=== PATIENT | female | born 1955 | race Hispanic/Latino ===

== ENCOUNTER → 2018-10-04 | Outpatient (CLI) | payer MEDICARE ==
[~2018-10-04] MED LIST: AMOX-426 PO; BUME0.5T11 PO; CHLO500T3 PO; CLON1TAB12 PO; ESOM40CA PO; FOLI1TAB15 PO; HYD25 PO; IOHEXOL-350 50ML VIAL IV ONE; LORA-868 PO; MULT-685 PO; PRED2.5T PO; PRED5TAB PO; TEMO15C TP; TRAM50TA4 PO
== END | disposition home or self-care (01) ==
LOC: RAH 08:48
PROVIDERS: ATTEND Internal Medicine
DX: R05 Cough (principal); R76.11 Nonspecific reaction to tuberculin skin test without active tuberculosis; K44.9 Diaphragmatic hernia without obstruction or gangrene; M05.89 Other rheumatoid arthritis with rheumatoid factor of multiple sites; Z79.899 Other long term (current) drug therapy
CPT/HCPCS: 71270; Q9967

== ENCOUNTER → 2018-10-26 | Outpatient (CLI) | payer MEDICARE ==
[~2018-10-26] MED LIST changes: -IOHEXOL-350 50ML VIAL IV ONE
== END | disposition home or self-care (01) ==
LOC: RAH 12:37
PROVIDERS: ATTEND Internal Medicine
DX: E04.2 Nontoxic multinodular goiter (principal)
CPT/HCPCS: 76536

== ENCOUNTER → 2022-03-31 | Outpatient (CLI) | payer MEDICARE ==
[~2022-03-31] MED LIST changes: -BUME0.5T11 PO; +BUME0.5T4 PO
== END | disposition home or self-care (01) ==
LOC: RAH 13:34
PROVIDERS: ATTEND Family Medicine
DX: N63.12 Unspecified lump in the right breast, upper inner quadrant (principal); R92.8 Other abnormal and inconclusive findings on diagnostic imaging of breast
CPT/HCPCS: 76641; 77065

== ENCOUNTER → 2023-12-20 | Outpatient (CLI) | payer MEDICARE | END | disposition home or self-care (01) | LOC: RAH 08:44 | PROVIDERS: ATTEND Internal Medicine Gastroenterology | DX: K44.9 Diaphragmatic hernia without obstruction or gangrene (principal); R12 Heartburn; R93.3 Abnormal findings on diagnostic imaging of other parts of digestive tract | CPT/HCPCS: 74240 ==

== ENCOUNTER 2024-05-04 22:16 | Emergency (ER) | payer MEDICARE ==
[~2024-05-04] VITALS: Ht 157.5 cm; Wt 90.7 kg
[2024-05-04] MEDS: HYDROcodone/acetaMINOPHEN 10/325 MG TAB PO ONE (23:10)
[2024-05-04] MEDS: teTANUS/diphthERIA TOXOID [ADULT] 0.5 ML VIAL IM ONE (23:12)
[2024-05-04] MEDS: LIDOCAINE HCL 1% 20 ML VIAL INJ SCH (23:12)
[2024-05-04] MEDS: ceFAZolin SODIUM 1 GM VIAL IM SCH (23:24)
[2024-05-05] MEDS ORDERED: CEPH500B PO (00:22)
[2024-05-05] MEDS ORDERED: KETO10TA2 PO (00:22)
--- NOTE | 2024-05-05 00:25 | ERN ---
General Chief Complaint: Mechanical Fall Stated Complaint: LACERATION TO R KNEE S/P FALL Time Seen by MD: 22:19 Time Seen by Midlevel: 22:19 Source: patient History of Present Illness Initial Comments Patient is a morbidly obese 68-year-old female presenting to the emergency department following a mechanical ground level fall. Patient states she was getting out of bed when she accidentally tripped and landed on her right knee. There is a large laceration just above the right knee. Patient states he landed on carpet in his unsure how she cut her leg. As soon as this happened she was transported to the ER for further evaluation. Patient denies being up-to-date with her tetanus vaccination Allergies: Coded Allergies: No Known Drug Allergies (Verified Allergy, Unknown, 08/02/14) Home Meds Active Scripts Cephalexin Monohydrate (Keflex) 500 Mg Cap, 500 MG PO TID for 7 Days, #21 CAP Prov:CHEPE FUENTES 05/05/24 Ketorolac Tromethamine (Ketorolac Tromethamine) 10 Mg Tablet, 10 MG PO BID for 5 Days, #10 TAB Prov:CHEPE FUENTES 05/05/24 Amoxicillin/Potassium Clav (Augmentin 500-125 Tablet) 1 Each Tablet, 1 EACH PO BID, #20 TAB 0 Refills Prov:CHACE JOSÉ MD 09/13/14 Reported Medications Tramadol Hcl (Tramadol HCl) 50 Mg Tablet, 50 MG PO QID, TAB 09/04/14 Tramadol Hcl (Tramadol HCl) 50 Mg Tablet, 50 MG PO TID PRN for PAIN, TAB 08/02/14 Bumetanide (Bumetanide) 0.5 Mg Tablet, 0.5 MG PO QODAY, TAB 08/02/14 Clobetasol Propionate (Temovate 0.05% Cream) 1 Appl/Gm Crm, 1 APPL TP BID, APPL 08/02/14 Hydroxyzine HCl (Atarax) 25 Mg Tab, 10 MG PO [id number] PRN for ITCHING, TAB 08/02/14 Loratadine/Pseudoephedrine (Claritin-D 24 Hour Tablet) 1 Each Tab.er.24h, 1 EACH PO DAILY, TAB 08/02/14 Clonazepam (Clonazepam) 1 Mg Tablet, 1 MG PO HS, TAB 3/6/15 Multivitamin with Minerals (Multiple Vitamin) 1 Each Tablet, 1 EACH PO DAILY, TAB 08/02/14 Folic Acid (Folic Acid) 1 Mg Tablet, 1 MG PO DAILY, TAB 08/02/14 Chlorzoxazone (Chlorzoxazone) 500 Mg Tablet, 500 MG PO [id number] PRN for PAIN, TAB 08/02/14 Prednisone (Prednisone) 2.5 Mg Tablet, 2.5 MG PO DAILYDINNER, TAB 08/02/14 Prednisone (Prednisone) 5 Mg Tablet, 5 MG PO DAILYBKFST, TAB 08/02/14 Esomeprazole Magnesium (Nexium) 40 Mg Capsule.dr, 40 MG PO DAILY, CAP 08/02/14 Past Medical History Past Medical History: Arthritis Past Surgical History: Hysterectomy, Other Surgical History Other: R TOTAL KNEE, HIATAL HERNIA ROS Dictation CONSTITUTIONAL: Negative except for HPI HEAD/FACE: Negative except for HPI EENT: Negative except for HPI RESPIRATORY: Negative except for HPI GASTROINTESTINAL/ABDOMINAL: Negative except for HPI GENITOURINARY: Negative except for HPI MUSCULOSKELETAL: Negative except for HPI INTEGUMENTARY: Negative except for HPI NEUROLOGICAL/PSYCH: Negative except for HPI HEMATOLOGIC/LYMPHATIC: Negative except for HPI All Systems Negative, Except as noted above. 13 point review of systems assessed and all negative except for above. Physical Exam Physical Exam Dictation Vital Signs reviewed General Appearance: Alert, oriented x 3, no acute distress, well developed, nourished. Head and Face: non-traumatic. Eyes: PERRL, pink conjunctivas, eyelid no trauma, anterior chamber with arcus senilis. Ears: Pinnas intact and no signs of trauma or erythema ear canals clear and no discharge TM no erythema Nose: No discharge, no bleeding. Oropharynx: Mouth normal, tongue pink, pharynx clear,no erythema, tonsils no exudates, no abscesses noted, mucous membrane moist Neck: Supple, non-tender, no thyromegaly, no masses, no JVD, no bruits Breast:Deferred Chest:No tenderness, no crepitus, no paradoxical movement, no retractions Lungs:Clear, well-ventilated, symmetric, no rales, no wheezing, no rhonchi, no stridor, good breath sounds bilaterally Heart: Regular rate, regular rhythm, no murmur, no gallops Vascular: no peripheral edema, Abdomen: Soft, positive bowel sounds, nondistended, no guarding, nontender, no rebound, no masses no hepatomegaly, no splenomegaly, no Medina's sign, no hernias. Rectal: Deferred Genital: Deferred Neurological: Normal speech, motor function intact, sensory function intact Musculoskeletal: Neck nontender, full range of motion, back nontender, full range of motion, Extremities: nontender, full range of motion Skin: 10 cm linear laceration to the right leg just above the knee joint, there is full range motion of the right knee, there is some mild surrounding swelling, there is minimal active bleeding, no foreign bodies identified Lymphatic: Deferred MDM MDM: Patient is a morbidly obese 68-year-old female presenting to the emergency department following a mechanical ground level fall. Patient states she was getting out of bed when she accidentally tripped and landed on her right knee. There is a large laceration just above the right knee. Patient states he landed on carpet in his unsure how she cut her leg. As soon as this happened she was transported to the ER for further evaluation. Patient denies being up-to-date with her tetanus vaccination. On physical examination patient is in no acute distress. There is a 10 cm linear laceration to the right leg just above the knee joint, there is full range motion of the right knee, there is some mild surrounding swelling, there is minimal active bleeding, no foreign bodies identified. An x-ray of the right knee was obtained which does not show any acute fracture or radiopaque foreign body. The laceration was thoroughly cleansed with normal saline, wound cleanser, and iodine. The laceration was successfully repaired with 2-0 simple interrupted sutures. The patient was given a tetanus vaccination in the emergency department and she was also given1 g of Ancef to prevent an infection. She was discharged home with oral antibiotics. Patient was advised to follow up with primary care doctor in 7-10 days for suture removal. If she was to develop any signs of infection she was advised to report to the ER for further evaluation. Differential diagnosis: Knee fracture, laceration, abrasion, contusion, dislocation There are no social concerns with this patient. Prescription drug management Prescriptions will include: Keflex and Toradol Medical management and examination interpretation discussions were had by me with other qualified healthcare professionals as indicated for the patient's care. ED Course Orders Procedure Category Date Status Time Hydrocodone/Apap PHA 05/04/24 Complete 10/325 Tab ([place] 10) 23:00 Knee 3vws Rt RAD 05/04/24 Resulted 22:31 Tibia/Fibula 2vws Rt RAD 05/04/24 Resulted 22:31 Lidocaine Hcl 1% 20ml PHA 05/04/24 Complete Vial (Lidocaine Hc 23:00 Laceration Tray Set CPOE 05/04/24 Transmitted Up (Er) 22:31 Tetanus,Diphtheria PHA 05/04/24 Complete Tox [Adult] (Diphther 23:00 Cefazolin Sodium 1 Gm PHA 05/04/24 Complete Vial (Ancef 1 Gm V 23:30 Morphine 4mg Syg PHA 05/05/24 Complete (Morphine 4mg Syg) 00:30 Current Medications Medications (Trade) Dose Ordered Sig/Leonarda Route PRN Reason Start Time Stop Time Status Last Admin Dose Admin Acetaminophen/ Hydrocodone Bitart (NORco 10) 1 tab ONCE ONCE PO 05/04/24 23:00 05/04/24 23:01 DC 05/04/24 23:10 Cefazolin Sodium (ANCEF 1 gm vial) 1 gm ONCE IM 05/04/24 23:30 05/05/24 00:42 DC 05/04/24 23:24 Lidocaine HCl (Lidocaine HCl 1% 20ml Vial) ONCE INJ 05/04/24 23:00 05/05/24 00:42 DC 05/04/24 23:12 Morphine Sulfate (morPHINE 4MG SYG) 3 mg ONCE PRN IM SEVERE PAIN (7-10) 05/05/24 00:30 05/05/24 00:42 DC 05/05/24 00:36 Tetanus/ Diphtheria Toxoids Adsorbed (DiphthERIA-teTANUS TOXOID [ADULT]/ DECAVAC) 0.5 ml ONCE ONCE IM 05/04/24 23:00 05/04/24 23:01 DC 05/04/24 23:12 Vital Signs Date Time Temp Pulse Resp B/P (MAP) Pulse Ox O2 Delivery O2 Flow Rate FiO2 05/05/24 00:34 97.3 100 17 136/64 98 Room Air* 0 21 05/04/24 22:18 97.3 107 17 130/64 98 Room Air 0 05/04/24 22:17 97.3 107 17 130/64 98 Room Air* [address] [id number] IMAGING REPORT Signed PATIENT: JEYSON TYLER MR#: [id number] : 1955 SEX: F AGE: 68 LOCATION: ED ORDER 34 STATUS: [facility] ER REPORT#: [id number] SERVICE 30 REASON: fall/laceration ORDERING PHYSICIAN: CHEPE FUENTES PROCEDURE: KNEE 3V RT - KNEE 3VWS RT RIGHT KNEE RADIOGRAPHS - 3 VIEWS INDICATION: Pain COMPARISON: None FINDINGS: AP, lateral, and oblique views. Moderate to severe anterolateral right knee soft tissue swelling beginning at the level of the patella and extending distally to along the proximal to mid right leg. No acute fracture or dislocation identified. No significant joint effusion is present. Normal right knee arthroplasty hardware. Overlying soft tissues appear normal. IMPRESSION: No evidence for fracture or hardware complication. DICTATED BY: MANPREET MUÑOZ MD DATE: 05/05/24829 ELECTRONICALLY SIGNED BY: MANPREET MUÑOZ MD DATE: 05/05/[address] [address] IMAGING REPORT Signed PATIENT: JEYSON TYLER MR#: [id number] : 1955 SEX: F AGE: 68 LOCATION: [facility] ORDER 34 STATUS: [facility] ER HOSPITAL REPORT#: [id number] SERVICE 30 REASON: fall/laceration ORDERING PHYSICIAN: CHEPE FUENTES PROCEDURE: TIBFIB RT - TIBIA/FIBULA 2VWS RT RIGHT TIBIA AND FIBULA RADIOGRAPHS - 2 VIEWS INDICATION: Pain COMPARISON: None. FINDINGS: AP and lateral views. Moderate to severe soft tissue swelling along the anterolateral proximal to mid right leg. No acute fracture or subluxation identified. No intrinsic osseous abnormality detected. Right knee arthroplasty hardware appears normal. IMPRESSION: No evidence for fracture or dislocation. DICTATED BY: MANPREET MUÑOZ MD DATE: 05/05/24829 ELECTRONICALLY SIGNED BY: MANPREET MUÑOZ MD DATE: 05/05/24 0833 Procedure Dictation Procedure Name: Laceration Repair Indication: Reduce risk of infection Location: 10 cm linear laceration to the right anterior knee Pre-Procedure Diagnosis: Laceration Post-Procedure Diagnosis: Repaired Laceration Informed consent was obtained before procedure started. PROCEDURE: The appropriate timeout was taken. The area was prepped and draped in the usual sterile fashion. Local anesthesia was achieved using 10cc of Lidocaine 1% without epinephrine. The wound was copiously irrigated. 10 2-0 Ethilon simple interrupted sutures were placed. Estimated blood loss was less than 0.5 mL. A dressing was applied to the area and anticipatory guidance, as well as standard post-procedure care, was explained. Return precautions are given. The patient tolerated the procedure well without complications. Follow-up visit set for suture removal and evaluation of the laceration. DX & DISP Disposition: Discharge Departure Impression: Primary Impression: Fall Additional Impression: Laceration of right knee Condition: Stable Scripts Cephalexin Monohydrate (Keflex) 500 Mg Cap 500 MG PO TID for 7 Days, #21 CAP Prov: CHEPE FUENTES 05/05/24 Ketorolac Tromethamine (Ketorolac Tromethamine) 10 Mg Tablet 10 MG PO BID for 5 Days, #10 TAB Prov: CHEPE FUENTES 05/05/24 Additional Instructions: X-ray of the right knee and lower leg are negative for any acute fracture. Your laceration was successfully repaired with sutures. The sutures will need to be removed in 10 days. If you develop any signs of infection please return to the emergency department for further evaluation. You may follow up with your primary care doctor or return to the ER for suture removal. Referrals: ABDIRASHID RASMUSSEN MD (PCP) Time of Disposition: 00:21 I have reviewed the case, and I agree with, Diagnosis and Plan I performed the substantive portion of the visit. I have reviewed and personally made and approve the management plan that is documented in the note by myself or the AKILAH. I acknowledge for responsibility for the patient's management plan. CHEPE FUENTES May 05, 2024 00:24
[2024-05-05 00:34] VITALS: BP 136/64; PULSE 100; RESP 17; TEMP 97.4; O2SAT 98
[2024-05-05] MEDS: morPHINE 4 MG SYG IM PRN (00:36)
--- NOTE | 2024-05-05 00:39 | NUR ---
10 STITCHES PLACED TO LACERATION OF RIGHT KNEE BY ED PA COMPRESSION DRESSING APPLIED TO SITE PATIENT TOLERATED WELL
--- NOTE | 2024-05-05 08:33 | HMCIMG ---
RIGHT KNEE RADIOGRAPHS - 3 VIEWS INDICATION: Pain COMPARISON: None FINDINGS: AP, lateral, and oblique views. Moderate to severe anterolateral right knee soft tissue swelling beginning at the level of the patella and extending distally to along the proximal to mid right leg. No acute fracture or dislocation identified. No significant joint effusion is present. Normal right knee arthroplasty hardware. Overlying soft tissues appear normal. IMPRESSION: No evidence for fracture or hardware complication.
--- NOTE | 2024-05-05 08:33 | HMCIMG ---
RIGHT TIBIA AND FIBULA RADIOGRAPHS - 2 VIEWS INDICATION: Pain COMPARISON: None. FINDINGS: AP and lateral views. Moderate to severe soft tissue swelling along the anterolateral proximal to mid right leg. No acute fracture or subluxation identified. No intrinsic osseous abnormality detected. Right knee arthroplasty hardware appears normal. IMPRESSION: No evidence for fracture or dislocation.
== END 2024-05-05 00:42 | disposition home or self-care (01) ==
LOC: EDH 22:16
DX: S81.011A Laceration without foreign body, right knee, initial encounter (principal); E66.01 Morbid (severe) obesity due to excess calories; M19.90 Unspecified osteoarthritis, unspecified site; Z90.710 Acquired absence of both cervix and uterus; Z98.890 Other specified postprocedural states; W01.0XXA Fall on same level from slipping, tripping and stumbling without subsequent striking against object, initial encounter; Y93.89 Activity, other specified; Y92.89 Other specified places as the place of occurrence of the external cause; Y99.8 Other external cause status
CPT/HCPCS: 99284; 90714; 73562; 73590; 90471; 12004; 96372 ×2; J0690; J2270

== ENCOUNTER → 2024-07-26 | Outpatient (CLI) | payer MEDICARE ==
[~2024-07-26] MED LIST changes: -AMOX-426 PO; +BACL10TA PO; +BRIM5DRO21 OP; -BUME0.5T4 PO; +CARV6.25 PO; +CEFT2VIA12 IVPB; -CHLO500T3 PO; -CLON1TAB12 PO; +DULO20CA18 PO; -ESOM40CA PO; -FOLI1TAB15 PO; -HYD25 PO; -LORA-868 PO; +LOSA50TA64 PO; +METH-386 PO; +METH2.5T7 PO; +MONT-39 PO; -MULT-685 PO; -PRED2.5T PO; -PRED5TAB PO; -TEMO15C TP; +TIMO.5OS OP; -TRAM50TA4 PO
== END | disposition home or self-care (01) ==
LOC: WHH 08:15
PROVIDERS: ATTEND Family Medicine
DX: T81.31XA Disruption of external operation (surgical) wound, not elsewhere classified, initial encounter (principal); S81.801A Unspecified open wound, right lower leg, initial encounter; I10 Essential (primary) hypertension; K21.9 Gastro-esophageal reflux disease without esophagitis; E66.01 Morbid (severe) obesity due to excess calories; M06.8A Other specified rheumatoid arthritis, other specified site; X58.XXXA Exposure to other specified factors, initial encounter; Z68.34 Body mass index [BMI] 34.0-34.9, adult; Z79.899 Other long term (current) drug therapy; Y83.8 Other surgical procedures as the cause of abnormal reaction of the patient, or of later complication, without mention of misadventure at the time of the procedure; Y92.238 Other place in hospital as the place of occurrence of the external cause; Y93.89 Activity, other specified; Y92.89 Other specified places as the place of occurrence of the external cause; Y99.8 Other external cause status
CPT/HCPCS: 11042; A4450

== ENCOUNTER → 2024-08-09 | Outpatient (CLI) | payer MEDICARE ==
[~2024-08-09] MED LIST changes: +LIDOCAINE HCL 4% LTA SOL 4 ML VIAL TP ONE
== END | disposition home or self-care (01) ==
LOC: WHH 08:07
PROVIDERS: ATTEND Family Medicine
DX: T81.31XD Disruption of external operation (surgical) wound, not elsewhere classified, subsequent encounter (principal); S81.801D Unspecified open wound, right lower leg, subsequent encounter; I10 Essential (primary) hypertension; K21.9 Gastro-esophageal reflux disease without esophagitis; E66.01 Morbid (severe) obesity due to excess calories; M06.8A Other specified rheumatoid arthritis, other specified site; Z68.34 Body mass index [BMI] 34.0-34.9, adult; Z79.899 Other long term (current) drug therapy; X58.XXXD Exposure to other specified factors, subsequent encounter; Y83.8 Other surgical procedures as the cause of abnormal reaction of the patient, or of later complication, without mention of misadventure at the time of the procedure
CPT/HCPCS: 11042; A6010

== ENCOUNTER → 2024-08-16 | Outpatient (CLI) | payer MEDICARE | END | disposition home or self-care (01) | LOC: WHH 08:14 | PROVIDERS: ATTEND Family Medicine | DX: T81.31XD Disruption of external operation (surgical) wound, not elsewhere classified, subsequent encounter (principal); S81.801D Unspecified open wound, right lower leg, subsequent encounter; I10 Essential (primary) hypertension; K21.9 Gastro-esophageal reflux disease without esophagitis; E66.01 Morbid (severe) obesity due to excess calories; M06.8A Other specified rheumatoid arthritis, other specified site; Z68.34 Body mass index [BMI] 34.0-34.9, adult; Z79.899 Other long term (current) drug therapy; X58.XXXD Exposure to other specified factors, subsequent encounter; Y83.8 Other surgical procedures as the cause of abnormal reaction of the patient, or of later complication, without mention of misadventure at the time of the procedure | CPT/HCPCS: G0463 ==

== ENCOUNTER → 2024-08-27 | Outpatient (CLI) | payer MEDICARE ==
[~2024-08-27] MED LIST changes: -LIDOCAINE HCL 4% LTA SOL 4 ML VIAL TP ONE
--- NOTE | 2024-08-28 10:05 | HMCIMG ---
MAMMO SCREENING BILATERAL HISTORY: Screening mammogram. COMPARISON: 05/03/2023 TECHNIQUE: Bilateral screening mammogram with CAD was performed with craniocaudal and mediolateral oblique projections. FINDINGS: There are scattered areas of fibroglandular density. Calcified oil cyst is seen in the right breast. There is no evidence of a dominant mass, or suspicious microcalcification. There is no evidence of nipple retraction or skin thickening. IMPRESSION: 1. Stable mammogram. Patient was entered into a reminder system with a target due date for their next mammogram. BI-RADS: CATEGORY 2: BENIGN FINDINGS Recommend monthly self breast exam as well as annual clinical examination. A negative x-ray should not delay biopsy if a dominant or clinically suspicious mass is present, since 8-10% of cancers are not identified by mammography. Dense breasts particularly, may obscure an underlying neoplasm. Some of these may be detected clinically and therefore, clinical examination is an essential part of breast evaluation.
== END | disposition home or self-care (01) ==
LOC: RAH 12:37
PROVIDERS: ATTEND Family Medicine
DX: Z12.31 Encounter for screening mammogram for malignant neoplasm of breast (principal); R92.30 Dense breasts, unspecified; N60.01 Solitary cyst of right breast
CPT/HCPCS: 77067

== ENCOUNTER → 2024-09-06 | Outpatient (CLI) | payer MEDICARE ==
[~2024-09-06] MED LIST changes: +LIDOCAINE HCL 4% LTA SOL 4 ML VIAL TP ONE
== END | disposition home or self-care (01) ==
LOC: WHH 07:53
PROVIDERS: ATTEND Family Medicine
DX: T81.31XD Disruption of external operation (surgical) wound, not elsewhere classified, subsequent encounter (principal); S81.801D Unspecified open wound, right lower leg, subsequent encounter; I10 Essential (primary) hypertension; K21.9 Gastro-esophageal reflux disease without esophagitis; E66.01 Morbid (severe) obesity due to excess calories; M06.8A Other specified rheumatoid arthritis, other specified site; Z68.34 Body mass index [BMI] 34.0-34.9, adult; Z79.899 Other long term (current) drug therapy; X58.XXXD Exposure to other specified factors, subsequent encounter; Y83.8 Other surgical procedures as the cause of abnormal reaction of the patient, or of later complication, without mention of misadventure at the time of the procedure
CPT/HCPCS: G0463; A6010

== ENCOUNTER → 2024-09-13 | Outpatient (CLI) | payer MEDICARE | END | disposition home or self-care (01) | LOC: WHH 08:06 | PROVIDERS: ATTEND Family Medicine | DX: T81.31XD Disruption of external operation (surgical) wound, not elsewhere classified, subsequent encounter (principal); S81.801D Unspecified open wound, right lower leg, subsequent encounter; I10 Essential (primary) hypertension; K21.9 Gastro-esophageal reflux disease without esophagitis; E03.9 Hypothyroidism, unspecified; E66.01 Morbid (severe) obesity due to excess calories; M06.8A Other specified rheumatoid arthritis, other specified site; Z68.34 Body mass index [BMI] 34.0-34.9, adult; Z79.899 Other long term (current) drug therapy; X58.XXXD Exposure to other specified factors, subsequent encounter; Y83.8 Other surgical procedures as the cause of abnormal reaction of the patient, or of later complication, without mention of misadventure at the time of the procedure | CPT/HCPCS: 11042; A6010 ==

== ENCOUNTER → 2024-09-20 | Outpatient (CLI) | payer MEDICARE | END | disposition home or self-care (01) | LOC: WHH 07:59 | PROVIDERS: ATTEND Family Medicine | DX: T81.31XD Disruption of external operation (surgical) wound, not elsewhere classified, subsequent encounter (principal); S81.801D Unspecified open wound, right lower leg, subsequent encounter; I10 Essential (primary) hypertension; K21.9 Gastro-esophageal reflux disease without esophagitis; E03.9 Hypothyroidism, unspecified; E66.01 Morbid (severe) obesity due to excess calories; M06.8A Other specified rheumatoid arthritis, other specified site; Z68.34 Body mass index [BMI] 34.0-34.9, adult; Z79.899 Other long term (current) drug therapy; X58.XXXD Exposure to other specified factors, subsequent encounter; Y83.8 Other surgical procedures as the cause of abnormal reaction of the patient, or of later complication, without mention of misadventure at the time of the procedure | CPT/HCPCS: 11042; A6010 ==

== ENCOUNTER → 2024-10-04 | Outpatient (CLI) | payer MEDICARE | END | disposition home or self-care (01) | LOC: WHH 07:54 | PROVIDERS: ATTEND Family Medicine | DX: T81.31XD Disruption of external operation (surgical) wound, not elsewhere classified, subsequent encounter (principal); S81.801D Unspecified open wound, right lower leg, subsequent encounter; I10 Essential (primary) hypertension; K21.9 Gastro-esophageal reflux disease without esophagitis; E66.01 Morbid (severe) obesity due to excess calories; E03.9 Hypothyroidism, unspecified; M06.8A Other specified rheumatoid arthritis, other specified site; Z68.34 Body mass index [BMI] 34.0-34.9, adult; Z79.899 Other long term (current) drug therapy; X58.XXXD Exposure to other specified factors, subsequent encounter; Y83.8 Other surgical procedures as the cause of abnormal reaction of the patient, or of later complication, without mention of misadventure at the time of the procedure | CPT/HCPCS: 11042 ==

== ENCOUNTER → 2024-10-11 | Outpatient (CLI) | payer MEDICARE | END | disposition home or self-care (01) | LOC: WHH 07:58 | PROVIDERS: ATTEND Family Medicine | DX: T81.31XD Disruption of external operation (surgical) wound, not elsewhere classified, subsequent encounter (principal); S81.801D Unspecified open wound, right lower leg, subsequent encounter; I10 Essential (primary) hypertension; K21.9 Gastro-esophageal reflux disease without esophagitis; E66.01 Morbid (severe) obesity due to excess calories; E03.9 Hypothyroidism, unspecified; M06.8A Other specified rheumatoid arthritis, other specified site; Z68.34 Body mass index [BMI] 34.0-34.9, adult; Z79.899 Other long term (current) drug therapy; X58.XXXD Exposure to other specified factors, subsequent encounter; Y83.8 Other surgical procedures as the cause of abnormal reaction of the patient, or of later complication, without mention of misadventure at the time of the procedure | CPT/HCPCS: G0463 ==

== ENCOUNTER → 2024-10-18 | Outpatient (CLI) | payer MEDICARE | END | disposition home or self-care (01) | LOC: WHH 08:05 | PROVIDERS: ATTEND Family Medicine | DX: T81.31XD Disruption of external operation (surgical) wound, not elsewhere classified, subsequent encounter (principal); S81.801D Unspecified open wound, right lower leg, subsequent encounter; I10 Essential (primary) hypertension; K21.9 Gastro-esophageal reflux disease without esophagitis; E66.01 Morbid (severe) obesity due to excess calories; E03.9 Hypothyroidism, unspecified; M06.8A Other specified rheumatoid arthritis, other specified site; Z68.34 Body mass index [BMI] 34.0-34.9, adult; Z79.899 Other long term (current) drug therapy; X58.XXXD Exposure to other specified factors, subsequent encounter; Y83.8 Other surgical procedures as the cause of abnormal reaction of the patient, or of later complication, without mention of misadventure at the time of the procedure | CPT/HCPCS: G0463 ==

== ENCOUNTER → 2024-10-25 | Outpatient (CLI) | payer MEDICARE ==
[~2024-10-25] MED LIST changes: -LIDOCAINE HCL 4% LTA SOL 4 ML VIAL TP ONE
== END | disposition home or self-care (01) ==
LOC: WHH 08:03
PROVIDERS: ATTEND Family Medicine
DX: T81.31XD Disruption of external operation (surgical) wound, not elsewhere classified, subsequent encounter (principal); S81.801D Unspecified open wound, right lower leg, subsequent encounter; I10 Essential (primary) hypertension; K21.9 Gastro-esophageal reflux disease without esophagitis; E66.01 Morbid (severe) obesity due to excess calories; E03.9 Hypothyroidism, unspecified; M06.8A Other specified rheumatoid arthritis, other specified site; Z68.34 Body mass index [BMI] 34.0-34.9, adult; Z79.899 Other long term (current) drug therapy; X58.XXXD Exposure to other specified factors, subsequent encounter; Y83.8 Other surgical procedures as the cause of abnormal reaction of the patient, or of later complication, without mention of misadventure at the time of the procedure
CPT/HCPCS: G0463

== ENCOUNTER → 2024-11-12 | Outpatient (CLI) | payer MEDICARE | END | disposition home or self-care (01) | LOC: WHH 10:04 | PROVIDERS: ATTEND Family Medicine | DX: T81.31XD Disruption of external operation (surgical) wound, not elsewhere classified, subsequent encounter (principal); S81.801D Unspecified open wound, right lower leg, subsequent encounter; I10 Essential (primary) hypertension; K21.9 Gastro-esophageal reflux disease without esophagitis; E66.01 Morbid (severe) obesity due to excess calories; E03.9 Hypothyroidism, unspecified; M06.8A Other specified rheumatoid arthritis, other specified site; Z79.899 Other long term (current) drug therapy; Z68.28 Body mass index [BMI] 28.0-28.9, adult; X58.XXXD Exposure to other specified factors, subsequent encounter; Y83.8 Other surgical procedures as the cause of abnormal reaction of the patient, or of later complication, without mention of misadventure at the time of the procedure | CPT/HCPCS: 87086; 87186; 87070; G0463; A4450 ==

== ENCOUNTER → 2024-11-15 | Outpatient (CLI) | payer MEDICARE ==
[~2024-11-15] MED LIST changes: +LIDOCAINE HCL 4% LTA SOL 4 ML VIAL TP ONE
== END | disposition home or self-care (01) ==
LOC: WHH 10:47
PROVIDERS: ATTEND Family Medicine
DX: T81.31XD Disruption of external operation (surgical) wound, not elsewhere classified, subsequent encounter (principal); S81.801D Unspecified open wound, right lower leg, subsequent encounter; L02.415 Cutaneous abscess of right lower limb; I10 Essential (primary) hypertension; K21.9 Gastro-esophageal reflux disease without esophagitis; E66.01 Morbid (severe) obesity due to excess calories; E03.9 Hypothyroidism, unspecified; M06.8A Other specified rheumatoid arthritis, other specified site; Z79.899 Other long term (current) drug therapy; Z68.28 Body mass index [BMI] 28.0-28.9, adult; X58.XXXD Exposure to other specified factors, subsequent encounter; Y83.8 Other surgical procedures as the cause of abnormal reaction of the patient, or of later complication, without mention of misadventure at the time of the procedure
CPT/HCPCS: 10060

== ENCOUNTER → 2024-11-22 | Outpatient (CLI) | payer MEDICARE ==
[~2024-11-22] MED LIST changes: -LIDOCAINE HCL 4% LTA SOL 4 ML VIAL TP ONE
== END | disposition home or self-care (01) ==
LOC: WHH 09:48
PROVIDERS: ATTEND Family Medicine
DX: T81.31XD Disruption of external operation (surgical) wound, not elsewhere classified, subsequent encounter (principal); S81.801D Unspecified open wound, right lower leg, subsequent encounter; L02.415 Cutaneous abscess of right lower limb; I10 Essential (primary) hypertension; K21.9 Gastro-esophageal reflux disease without esophagitis; E66.01 Morbid (severe) obesity due to excess calories; E03.9 Hypothyroidism, unspecified; M06.8A Other specified rheumatoid arthritis, other specified site; Z79.899 Other long term (current) drug therapy; Z68.28 Body mass index [BMI] 28.0-28.9, adult; X58.XXXD Exposure to other specified factors, subsequent encounter; Y83.8 Other surgical procedures as the cause of abnormal reaction of the patient, or of later complication, without mention of misadventure at the time of the procedure
CPT/HCPCS: G0463

== ENCOUNTER → 2024-11-29 | Outpatient (CLI) | payer MEDICARE | END | disposition home or self-care (01) | LOC: WHH 10:20 | PROVIDERS: ATTEND Family Medicine | DX: T81.31XD Disruption of external operation (surgical) wound, not elsewhere classified, subsequent encounter (principal); S81.801D Unspecified open wound, right lower leg, subsequent encounter; L02.415 Cutaneous abscess of right lower limb; I10 Essential (primary) hypertension; K21.9 Gastro-esophageal reflux disease without esophagitis; E66.01 Morbid (severe) obesity due to excess calories; E03.9 Hypothyroidism, unspecified; M06.8A Other specified rheumatoid arthritis, other specified site; Z79.899 Other long term (current) drug therapy; Z68.28 Body mass index [BMI] 28.0-28.9, adult; X58.XXXD Exposure to other specified factors, subsequent encounter; Y83.8 Other surgical procedures as the cause of abnormal reaction of the patient, or of later complication, without mention of misadventure at the time of the procedure | CPT/HCPCS: G0463 ==

== ENCOUNTER → 2024-12-17 | Outpatient (CLI) | payer MEDICARE ==
[~2024-12-17] MED LIST changes: +LIDOCAINE HCL 4% LTA SOL 4 ML VIAL TP ONE
== END | disposition home or self-care (01) ==
LOC: WHH 08:52
PROVIDERS: ATTEND Family Medicine
DX: T81.31XD Disruption of external operation (surgical) wound, not elsewhere classified, subsequent encounter (principal); S81.801D Unspecified open wound, right lower leg, subsequent encounter; L02.415 Cutaneous abscess of right lower limb; I10 Essential (primary) hypertension; K21.9 Gastro-esophageal reflux disease without esophagitis; E03.9 Hypothyroidism, unspecified; E66.01 Morbid (severe) obesity due to excess calories; M06.8A Other specified rheumatoid arthritis, other specified site; Z79.899 Other long term (current) drug therapy; Z68.28 Body mass index [BMI] 28.0-28.9, adult; X58.XXXD Exposure to other specified factors, subsequent encounter; Y83.8 Other surgical procedures as the cause of abnormal reaction of the patient, or of later complication, without mention of misadventure at the time of the procedure
CPT/HCPCS: 87086; 87186; 87070; G0463

== ENCOUNTER → 2024-12-24 | Outpatient (CLI) | payer MEDICARE ==
[~2024-12-24] MED LIST changes: -LIDOCAINE HCL 4% LTA SOL 4 ML VIAL TP ONE
== END | disposition home or self-care (01) ==
LOC: WHH 08:59
PROVIDERS: ATTEND Family Medicine
DX: T81.31XD Disruption of external operation (surgical) wound, not elsewhere classified, subsequent encounter (principal); S81.801D Unspecified open wound, right lower leg, subsequent encounter; L02.415 Cutaneous abscess of right lower limb; I10 Essential (primary) hypertension; K21.9 Gastro-esophageal reflux disease without esophagitis; E03.9 Hypothyroidism, unspecified; E66.01 Morbid (severe) obesity due to excess calories; M06.8A Other specified rheumatoid arthritis, other specified site; Z79.899 Other long term (current) drug therapy; Z68.28 Body mass index [BMI] 28.0-28.9, adult; X58.XXXD Exposure to other specified factors, subsequent encounter; Y83.8 Other surgical procedures as the cause of abnormal reaction of the patient, or of later complication, without mention of misadventure at the time of the procedure
CPT/HCPCS: G0463; A4450

== ENCOUNTER → 2025-01-07 | Outpatient (CLI) | payer MEDICARE | END | disposition home or self-care (01) | LOC: WHH 08:54 | PROVIDERS: ATTEND Family Medicine | DX: S81.801D Unspecified open wound, right lower leg, subsequent encounter (principal); T81.31XD Disruption of external operation (surgical) wound, not elsewhere classified, subsequent encounter; I10 Essential (primary) hypertension; K21.9 Gastro-esophageal reflux disease without esophagitis; E03.9 Hypothyroidism, unspecified; E66.01 Morbid (severe) obesity due to excess calories; M06.8A Other specified rheumatoid arthritis, other specified site; Z79.899 Other long term (current) drug therapy; Z68.28 Body mass index [BMI] 28.0-28.9, adult; X58.XXXD Exposure to other specified factors, subsequent encounter; Y83.8 Other surgical procedures as the cause of abnormal reaction of the patient, or of later complication, without mention of misadventure at the time of the procedure | CPT/HCPCS: G0463 ==